=== PATIENT | female | born 1980 | race Caucasian/White ===

== ENCOUNTER 2016-12-24 20:01 | Emergency (ER) | payer SELFPAY ==
[~2016-12-24] VITALS: Ht 172.7 cm; Wt 57.3 kg
[2016-12-24 20:05] VITALS: BP 131/76; PULSE 71; RESP 22; O2SAT 98
[2016-12-24] MEDS ORDERED: MARI10CA PO (20:23)
[2016-12-24] MEDS ORDERED: DILA4TAB2 PO (20:23)
[2016-12-24] MEDS ORDERED: ASPI81CH7 CHEW (20:23)
[2016-12-24] MEDS ORDERED: METO25TA6 PO (20:23)
[2016-12-24] MEDS ORDERED: AMIO400T PO (20:23)
[2016-12-24] MEDS ORDERED: LEVE500 PO (20:23)
[2016-12-24] MEDS ORDERED: FURO1TAB62 PO (20:23)
[2016-12-24] MEDS ORDERED: MORPHINE SULFATE 4 MG/ML INJ IV PUSH ONE (20:45)
[2016-12-24] MEDS ORDERED: ONDANSETRON HCL 4 MG/2 ML VIAL IV PUSH ONE (21:15)
[2016-12-24 21:22] VITALS: BP 93/66; PULSE 61; RESP 17; TEMP 98; O2SAT 98
[2016-12-24 21:36] LABS: AUTOMATED NEUTROPHIL # 4.8 TH/MM3 (1.8-7.7); BASOPHIL # 0.1 TH/MM3 (0-0.2); BASOPHIL % 1.2 % (0.0-2.0); EOSINOPHIL # 0.1 TH/MM3 (0-0.4); EOSINOPHIL % 1.1 % (0.0-4.0); HEMO FLAGS DIFF FINAL; LYMPHOCYTE # 2.5 TH/MM3 (1.0-4.8); MEAN CELL VOLUME 97.6 FL (80.0-100.0); MEAN CORPUSCULAR HEMOGLOBIN 32.7 PG (27.0-34.0); MEAN CORPUSCULAR HGB CONC 33.5 % (32.0-36.0); MONO % 5.1 % (0.0-8.0); NEUT % 61.6 % (16.0-70.0); PLATELET COUNT 343 TH/MM3 (150-450); RED BLOOD COUNT 4.51 MIL/MM3 (4.00-5.30); RED CELL DISTRIBUTION WIDTH 14.3 % (11.6-17.2); WHITE BLOOD COUNT 7.9 TH/MM3 (4.0-11.0)
--- NOTE | 2016-12-24 21:54 | RADRPT ---
EXAM DATE/TIME: 12/24/2016 21:28 [facility] COMPARISON: No previous studies available for comparison. INDICATIONS : Vomiting and chest pain since this morning. MEDICAL HISTORY : None. SURGICAL HISTORY : None. ENCOUNTER: Initial ACUITY: 1 day PAIN SCORE: 110 LOCATION: Bilateral chest FINDINGS: A single view of the chest demonstrates the lungs to be symmetrically aerated without evidence of mas s, infiltrate or effusion. The cardiomediastinal contours are unremarkable. Osseous structures are intact. CONCLUSION: No acute cardiopulmonary process. Liam Camarillo MD on December 24, 2016 at 21:53 Board Certified Radiologist. This report was verified electronically.
[2016-12-24 22:04] LABS: CHLORIDE 109 MEQ/L (98-107); POTASSIUM 3.9 MEQ/L (3.5-5.1); SODIUM (NA) 142 MEQ/L (136-145)
[2016-12-24 22:05] VITALS: BP 114/80; PULSE 54; RESP 17; TEMP 97.9; O2SAT 100
[2016-12-24 22:08] LABS: ANION GAP 10 MEQ/L (5-15); BICARBONATE 23.3 MEQ/L (21.0-32.0); BLOOD UREA NITROGEN 10 MG/DL (7-18)
[2016-12-24 22:11] LABS: ALT (GPT) 29 U/L (10-53); AST (GOT) 23 U/L (15-37); GLOMERULAR FILTRATION RATE 66 ML/MIN (>89)
--- NOTE | 2016-12-24 22:12 | PD ---
HPI Chief Complaint: Alcohol/Drug Intoxication Time Seen by Provider: 20:18 Travel History International Travel<30 days: No Contact w/Intl Traveler<30days: No Traveled to known affect area: No History of Present Illness HPI Patient is a 36-year-old female brought in by EMS due to intoxication. Per EMS , she told them that she had 14 drinks. She says she had 4 drinks tonight. She says she is just not feeling well. She says she went outside of the bar because she felt very clinical staff rn needed some air. She does not remember what happened after that. She says she has stage IV cardiomyopathy. She complains of pain and swelling to both of her legs. She just drove down here from [place] in the past few days. She denies chest pain or shortness of breath. PFSH Past Medical History Cardiomyopathy: Yes (States "end stage cardiomyopathy") Cardiovascular Problems: Yes (HTN) COPD: Yes Seizures: Yes (takes Keppra) Tetanus Vaccination: Unknown Influenza Vaccination: No ?: Not Past Surgical History Cardiac Surgery: Yes (see above) Coronary Artery Bypass Graft: Yes ("30 heart operations") Hysterectomy: Yes Oral Surgery: Yes (wisdom teeth) Pacemaker: Yes (subcutaneous on left lower rib cage/back area) Social History Alcohol Use: Yes (States "Inever drink"; also states she had "4 drinks today") Tobacco Use: Yes (occassional per pt) Substance Use: Yes (marijuana daily) Allergies-Medications (Allergen,Severity, Reaction): Coded Allergies: acetaminophen (Verified Allergy, Severe, Swelling, 12/24/16) bee venom protein (honey bee) (Verified Allergy, Severe, 12/24/16) oxycodone (Verified Allergy, Severe, Swelling, 12/24/16) Reported Meds & Prescriptions Reported Meds & Active Scripts Active Reported Keppra (Levetiracetam) 500 Mg Tab 400 Mg PO BID Lasix (Furosemide) 20 Mg Tab Unknown Dose PO BID Aspirin Children's (Aspirin) 81 Mg Chew 324 Mg CHEW DAILY Dilaudid (Hydromorphone HCl) 4 Mg Tab 4 Mg PO Q4H PRN Metoprolol Succinate ER 24 HR (Metoprolol Succinate) 25 Mg Tab 25 Mg PO DAILY Marinol (Dronabinol) 10 Mg Cap 10 Mg PO BID Amiodarone (Amiodarone HCl) 400 Mg Tab 400 Mg PO BID Review of Systems Except as stated in HPI: all other systems reviewed are Neg General / Constitutional: No: Fever, Chills Eyes: No: Blurred Vision HENT: No: Headaches, Lightheadedness Cardiovascular: No: Chest Pain or Discomfort Respiratory: No: Shortness of Breath Gastrointestinal: Positive: Nausea, Vomiting Musculoskeletal: Positive: Edema, Pain Skin: No Rash, No Change in Pigmentation Neurologic: No: Weakness, Dizziness Physical Exam Narrative GENERAL: Awake and alert, in no acute distress. Clearly intoxicated, alcohol breath. SKIN: Focused skin assessment warm/dry. No wounds or signs of trauma. HEAD: Atraumatic. Normocephalic. EYES: Pupils equal and round. No scleral icterus. Extraocular movements intact. ENT: Mucous membranes pink and moist. NECK: Trachea midline. No JVD. CARDIOVASCULAR: Regular rate and rhythm. No murmur appreciated. RESPIRATORY: No accessory muscle use. Clear to auscultation. Breath sounds equal bilaterally. GASTROINTESTINAL: Abdomen soft, non-tender, nondistended. MUSCULOSKELETAL: No obvious deformities. No clubbing. No cyanosis. Mild edema to both lower extremities. Tenderness to palpation of the left calf. NEUROLOGICAL: Awake and alert. No obvious cranial nerve deficits. Motor grossly within normal limits. Normal speech. PSYCHIATRIC: Appropriate mood and affect; insight and judgment normal. Data Data Last Documented VS Vital Signs Date Time Temp Pulse Resp B/P (MAP) Pulse Ox O2 Delivery O2 Flow Rate FiO2 12/24/16 22:44 54 17 100/62 (75) 99 Room Air 12/24/16 22:05 97.9 Orders Orders Complete Blood Count With Diff (12/24/16 20:34) Comprehensive Metabolic Panel (12/24/16 20:34) Electrocardiogram (12/24/16 ) Iv Access Insert/Monitor (12/24/16 20:34) Alcohol (Ethanol) (12/24/16 20:34) Chest, Single Ap (12/24/16 ) Ed Urine Pregnancytest Poc (12/24/16 20:34) Us Leg Venous Doppler Bilat (12/24/16 ) Morphine Inj (Morphine Inj) (12/24/16 20:45) Ondansetron Inj (Zofran Inj) (12/24/16 21:15) Labs Laboratory Tests Test 12/24/16 21:13 12/24/16 21:50 White Blood Count 7.9 TH/MM3 Red Blood Count 4.51 MIL/MM3 Hemoglobin 14.8 GM/DL Hematocrit 44.0 % Mean Corpuscular Volume 97.6 FL Mean Corpuscular Hemoglobin 32.7 PG Mean Corpuscular Hemoglobin Concent 33.5 % Red Cell Distribution Width 14.3 % Platelet Count 343 TH/MM3 Mean Platelet Volume 7.4 FL Neutrophils (%) (Auto) 61.6 % Lymphocytes (%) (Auto) 31.0 % Monocytes (%) (Auto) 5.1 % Eosinophils (%) (Auto) 1.1 % Basophils (%) (Auto) 1.2 % Neutrophils # (Auto) 4.8 TH/MM3 Lymphocytes # (Auto) 2.5 TH/MM3 Monocytes # (Auto) 0.4 TH/MM3 Eosinophils # (Auto) 0.1 TH/MM3 Basophils # (Auto) 0.1 TH/MM3 CBC Comment DIFF FINAL Differential Comment Blood Urea Nitrogen 10 MG/DL Creatinine 0.95 MG/DL Random Glucose 85 MG/DL Total Protein 7.1 GM/DL Albumin 3.6 GM/DL Calcium Level 8.2 MG/DL Alkaline Phosphatase 56 U/L Aspartate Amino Transf (AST/SGOT) 23 U/L Alanine Aminotransferase (ALT/SGPT) 29 U/L Total Bilirubin 0.2 MG/DL Sodium Level 142 MEQ/L Potassium Level 3.9 MEQ/L Chloride Level 109 MEQ/L Carbon Dioxide Level 23.3 MEQ/L Anion Gap 10 MEQ/L Estimat Glomerular Filtration Rate 66 ML/MIN Ethyl Alcohol Level 238 MG/DL [facility] Medical Decision Making Medical Screen Exam Complete: Yes Emergency Medical Condition: Yes Interpretation(s) ECG shows sinus bradycardia at 56, no ST elevation or depression, prolonged QT. Differential Diagnosis Intoxication versus electrolyte abnormality versus DVT versus syncope Narrative Course Patient is a 36-year-old female, obviously intoxicated, who comes in complaining of leg pain and swelling. She was found sleeping outside a bar. Exam shows mild edema of both lower extremities and tenderness to palpation of the left calf. IV established, labs sent. Patient given Zofran as well as pain medicine. No fluids given due to reported history of stage IV cardiomyopathy. Chest x-ray performed shows no evidence of cardiomegaly or pulmonary edema. Ultrasound shows no evidence of DVT. Last 24 hours Impressions Lower Extremity Ultrasound 12/24/16 0000 Signed Impressions: Service Date/Time: December 21:38 - CONCLUSION: Negative exam. No sonographic or Doppler findings of deep venous thrombosis. Liam Camarillo MD Chest X-Ray 12/24/16 0000 Signed Impressions: Service Date/Time: December 21:28 - CONCLUSION: No acute cardiopulmonary process. Liam Camarillo MD Patient was medically cleared. She eloped from the ED. She did have a sober friend with her. Her IV was found in the trashcan. Diagnosis Primary Impression: Alcohol intoxication Qualified Codes: F10.920 - Alcohol use, unspecified with intoxication, uncomplicated Disposition: DISCHARGE HOME Condition: Stable Kelsi Lin MD Dec 24, 2016 22:12
[2016-12-24 22:13] LABS: TOTAL BILIRUBIN ADULT 0.2 MG/DL (0.2-1.0)
[2016-12-24 22:14] LABS: ALCOHOL 238 MG/DL (0-5); ALKALINE PHOSPHATASE 56 U/L (45-117)
--- NOTE | 2016-12-24 22:24 | RADRPT ---
EXAM DATE/TIME: 12/24/2016 21:38 [facility] COMPARISON: No previous studies available for comparison. INDICATIONS : Bilateral leg swelling. MEDICAL HISTORY : Hypertension. Seizures. Chronic obstructive pulmonary disease. ETOH abuse. Substance abuse. SURGICAL HISTORY : Hysterectomy.Pacemaker. Cardiac surgery. ENCOUNTER: Initial ACUITY: 1 week PAIN SCORE: 2/10 LOCATION: Bilateral legs. TECHNIQUE: Venous ultrasound of the left and right leg was performed from the inguinal ligament to the proximal calf. Real-time, color Doppler and spectral tracing, compression and augmentation techniques were us ed. FINDINGS: RIGHT LEG: There is normal compressibility of the deep venous system from the inguinal region to the proximal ca lf. No echogenic clot is seen in the lumen of the common femoral, femoral, popliteal, and posterior tibial veins. There is a normal response of the venous system to proximal and distal augmentation an d respiration. LEFT LEG: There is normal compressibility of the deep venous system from the inguinal region to the proximal ca lf. No echogenic clot is seen in the lumen of the common femoral, femoral, popliteal, and posterior tibial veins. There is a normal response of the venous system to proximal and distal augmentation an d respiration. CONCLUSION: Negative exam. No sonographic or Doppler findings of deep venous thrombosis. Liam Camarillo MD on December 24, 2016 at 22:22 Board Certified Radiologist. This report was verified electronically.
[2016-12-24 22:44] VITALS: BP 100/62; PULSE 54; RESP 17; O2SAT 99
--- NOTE | 2016-12-25 11:39 | EKG ---
Date Performed: 12/24/2016 Time Performed: 21:04:45 PTAGE: 36 years EKG: SINUS BRADYCARDIA POSSIBLE PROLONGED QT INTERVAL ABNORMAL ECG NO PREVIOUS TRACING DOCTOR: David Santa Interpretating Date/Time 12/25/2016 11:37:42
== END 2016-12-24 23:38 | disposition left against medical advice (07) ==
LOC: PHED 20:01
DX: F10.920 Alcohol use, unspecified with intoxication, uncomplicated (principal); R00.1 Bradycardia, unspecified; I42.9 Cardiomyopathy, unspecified; I10 Essential (primary) hypertension; J44.9 Chronic obstructive pulmonary disease, unspecified; M79.662 Pain in left lower leg; Z72.0 Tobacco use
CPT/HCPCS: 71010; 80053; 80307; 84703; 85025; 93005; 93970; 96374; 96375; 99285; J2270; J2405

== ENCOUNTER 2017-04-10 10:41 | Emergency (ER) | payer OTHER ==
[~2017-04-10] VITALS: Ht 172.7 cm; Wt 52.0 kg
[~2017-04-10 10:41] MED LIST: AMIO400T PO; ASPI81CH7 CHEW; DILA4TAB10 PO; FURO1TAB62 PO; LEVE500 PO; MARI10CA PO; METO1TAB42 PO
[2017-04-10 10:43] VITALS: BP 118/87; PULSE 83; RESP 14; TEMP 98.5; O2SAT 96
[2017-04-10] MEDS ORDERED: RESP: ALBUTEROL 2.5 MG/IPRATROPIUM 0.5 MG NEB (SCH) NEB ONE (11:30)
--- NOTE | 2017-04-10 11:34 | PD ---
HPI Chief Complaint: Cold / Flu Symptoms Time Seen by Provider: 11:21 Travel History International Travel<30 days: No Contact w/Intl Traveler<30days: No Traveled to known affect area: No History of Present Illness HPI 36 year female presents to the emergency department complaining of painful nonproductive cough, clear rhinorrhea, and acute on chronic chest discomfort for 3 weeks. Patient states that she has developed back pain as well because of the coughing. States her chest pain is worse in the morning and with coughing, nonradiating. Patient denies shortness of breath however, states it is painful to breathe. Patient denies fever or chills. Denies nausea, vomiting , or diarrhea. Denies urinary problems. Denies chronic medical issues or chronic medication use. Patient denies recent travel, surgeries, immobilizations, or fractures. Also denies any chronic blood disorders or trauma. PFSH Past Medical History Cardiomyopathy: Yes (States "end stage cardiomyopathy") Cardiovascular Problems: Yes COPD: Yes Seizures: Yes (takes Keppra) ?: Not Past Surgical History Cardiac Surgery: Yes (see above) Coronary Artery Bypass Graft: Yes ("30 heart operations") Hysterectomy: Yes Oral Surgery: Yes (wisdom teeth) Pacemaker: Yes (subcutaneous on left lower rib cage/back area) Social History Alcohol Use: Yes (States "Inever drink"; also states she had "4 drinks today") Tobacco Use: Yes (occassional per pt) Substance Use: Yes (marijuana daily) Allergies-Medications (Allergen,Severity, Reaction): Coded Allergies: acetaminophen (Verified Allergy, Severe, Swelling, 04/10/17) bee venom protein (honey bee) (Verified Allergy, Severe, 04/10/17) oxycodone (Verified Allergy, Severe, Swelling, 04/10/17) Reported Meds & Prescriptions Reported Meds & Active Scripts Active Augmentin (Amoxicillin-Clavulanate) 875-125 Mg Tab 1 Tab PO BID 7 Days Ventolin Hfa 18 GM Inh (Albuterol Sulfate) 90 Mcg/Act Aer 1 Puff INH Q4H PRN Reported Keppra (Levetiracetam) 500 Mg Tab 400 Mg PO BID Lasix (Furosemide) 20 Mg Tab Unknown Dose PO BID Aspirin Children's (Aspirin) 81 Mg Chew 324 Mg CHEW DAILY Dilaudid (Hydromorphone HCl) 4 Mg Tab 4 Mg PO Q4H PRN Metoprolol Succinate ER 24 HR (Metoprolol Succinate) 25 Mg Tab 25 Mg PO DAILY Marinol (Dronabinol) 10 Mg Cap 10 Mg PO BID Amiodarone (Amiodarone HCl) 400 Mg Tab 400 Mg PO BID Review of Systems Except as stated in HPI: all other systems reviewed are Neg Physical Exam Narrative GENERAL: Well-developed well-nourished in mild distress SKIN: Focused skin assessment warm/dry. HEAD: Atraumatic. Normocephalic. EYES: Pupils equal and round. No scleral icterus. No injection or drainage. ENT: No nasal bleeding or discharge. Mucous membranes pink and moist. NECK: Trachea midline. No JVD. No lymphadenopathy. THROAT: No pharyngeal injection, exudates, or tonsillar hypertrophy. Airway is patent. Post nasal drip with clear rhinorrhea CARDIOVASCULAR: Regular rate and rhythm. No murmur appreciated. RESPIRATORY: No accessory muscle use. Clear to auscultation. Breath sounds equal bilaterally. Chest discomfort partially reproduced upon palpation GASTROINTESTINAL: Abdomen soft, non-tender, nondistended. Hepatic and splenic margins not palpable. MUSCULOSKELETAL: No obvious deformities. No clubbing. No cyanosis. No edema. No CVA Tenderness. NEUROLOGICAL: Awake and alert. No obvious cranial nerve deficits. Motor grossly within normal limits. Normal speech. PSYCHIATRIC: Appropriate mood and affect; insight and judgment normal. Data Data Last Documented VS Vital Signs Date Time Temp Pulse Resp B/P (MAP) Pulse Ox O2 Delivery O2 Flow Rate FiO2 04/10/17 16:45 04/10/17 16:00 80 16 100 Room Air 04/10/17 10:43 98.5 Orders Orders Albuterol-Ipratropium Neb (Duoneb Neb) (04/10/17 11:30) Electrocardiogram (04/10/17 ) Chest, Single Ap (04/10/17 ) Complete Blood Count With Diff (04/10/17 11:59) D-Dimer (04/10/17 11:59) Influenzae A/B Antigen (04/10/17 11:59) Sodium Chlor 0.9% 1000 Ml Inj (Ns 1000 M (04/10/17 12:00) Morphine Inj (Morphine Inj) (04/10/17 12:45) Ed Discharge Order (04/10/17 16:46) Labs Laboratory Tests Test 04/10/17 12:15 White Blood Count 8.8 TH/MM3 Red Blood Count 4.50 MIL/MM3 Hemoglobin 15.5 GM/DL Hematocrit 45.6 % Mean Corpuscular Volume 101.2 FL Mean Corpuscular Hemoglobin 34.4 PG Mean Corpuscular Hemoglobin Concent 34.0 % Red Cell Distribution Width 14.2 % Platelet Count 317 TH/MM3 Mean Platelet Volume 7.0 FL Neutrophils (%) (Auto) 78.6 % Lymphocytes (%) (Auto) 16.0 % Monocytes (%) (Auto) 4.3 % Eosinophils (%) (Auto) 0.6 % Basophils (%) (Auto) 0.5 % Neutrophils # (Auto) 6.9 TH/MM3 Lymphocytes # (Auto) 1.4 TH/MM3 Monocytes # (Auto) 0.4 TH/MM3 Eosinophils # (Auto) 0.1 TH/MM3 Basophils # (Auto) 0.0 TH/MM3 CBC Comment DIFF FINAL Differential Comment D-Dimer Quantitative (PE/DVT) 0.30 MG/L [facility] Medical Decision Making Medical Screen Exam Complete: Yes Emergency Medical Condition: Yes Differential Diagnosis Upper respiratory infection, influenza, asthma, COPD, bronchitis Narrative Course 36 year female presents to the emergency department complaining of painful nonproductive cough, clear rhinorrhea, and acute on chronic chest discomfort for 3 weeks. Patient states that she has developed back pain as well because of the coughing. States her chest pain is worse in the morning and with coughing, nonradiating. Patient denies shortness of breath however, states it is painful to breathe. Patient denies fever or chills. Denies nausea, vomiting , or diarrhea. Denies urinary problems. Denies chronic medical issues or chronic medication use. Patient denies recent travel, surgeries, immobilizations, or fractures. Also denies any chronic blood disorders or trauma. Vital signs stable. Physical exam findings essentially unremarkable. Last Impressions Chest X-Ray 04/10/17 0000 Signed Impressions: Service Date/Time: Monday, April 10, 2017 11:36 - CONCLUSION: No acute disease. Lennox Yates MD FACR EKG- sinus bradycardia without ST elevations or depressions. After further discussion patient admits to a history of ARVD cardiomyopathy, chronic chest pain, seizure disorder. She initially denied any chronic medical issues. Patient is on amiodarone, baby aspirin, metoprolol, Dilaudid, and Marinol daily. She has a history of cervical and ovarian cancer status post hysterectomy 2016. She says that the DuoNeb has helped decrease some of her discomfort. Patient's symptoms seem to be exacerbated by her friend in the room. Multiple reassessments noted with improvement in condition. Patient was in the emergency department extended time secondary to multiple blood draws were resulting in hemolysis. Chemistries and pending labs were cancelled as she admits that this is her baseline chest discomfort exacerbated by coughing. There is no evidence of any emergent condition at this time patient will be discharged with bronchitis. Albuterol and Augmentin prescribed because of duration of symptoms and apparent improvement of symptoms. Advised follow-up with primary care physician within 2-3 days. Patient walked out comfortably without issue. Return to the emergency for worsening or persistent symptoms. Diagnosis Primary Impression: Acute bronchitis Qualified Codes: J20.9 - Acute bronchitis, unspecified Referrals: [facility] Departure Forms: Tests/Procedures, Work Release Enter return to work date: Apr 13, 2017 Scripts Amoxicillin-Clavulanate (Augmentin) 875-125 Mg Tab 1 TAB PO BID for Infection for 7 Days, #14 TAB 0 Refills Prov: Garrett Davis MD 04/10/17 Albuterol 18 GM Inh (Ventolin Hfa 18 GM Inh) 90 Mcg/Act Aer 1 PUFF INH Q4H Y for SHORTNESS OF BREATH, #1 INHALER 0 Refills Prov: Garrett Davis MD 04/10/17 Disposition: 01 DISCHARGE HOME Condition: Stable Erin Joyner Apr 10, 2017 11:34
--- NOTE | 2017-04-10 11:51 | RADRPT ---
EXAM DATE/TIME: 04/10/2017 11:36 [facility] COMPARISON: CHEST SINGLE AP, December 24, 2016, 21:28. INDICATIONS : Patient complains of cough, congestion, shortness of breath, and chest pain. MEDICAL HISTORY : None. SURGICAL HISTORY : D-fib. ENCOUNTER: Initial ACUITY: 3 weeks PAIN SCORE: 8/10 FINDINGS: A single view of the chest demonstrates the lungs to be symmetrically aerated without evidence of mas s, infiltrate or effusion. The cardiomediastinal contours are unremarkable. Osseous structures are intact. The fibular bleed midline CONCLUSION: No acute disease. Lennox Yates MD FACR on April 10, 2017 at 11:48 Board Certified Radiologist. This report was verified electronically.
[2017-04-10 12:00] VITALS: PULSE 76; RESP 18; O2SAT 99
[2017-04-10] MEDS ORDERED: SODIUM CHLOR 0.9% 1000 ML INJ 1,000 ML IV ONE (12:00)
[2017-04-10] MEDS ORDERED: MORPHINE SULFATE 2 MG/ML INJ IV PUSH ONE (12:45)
[2017-04-10 12:50] LABS: AUTOMATED NEUTROPHIL # 6.9 TH/MM3 (1.8-7.7); BASOPHIL % 0.5 % (0.0-2.0); EOSINOPHIL # 0.1 TH/MM3 (0-0.4); EOSINOPHIL % 0.6 % (0.0-4.0); HEMATOCRIT 45.6 % (35.0-46.0); HEMOGLOBIN 15.5 GM/DL (11.6-15.3); LYMPHOCYTE # 1.4 TH/MM3 (1.0-4.8); MEAN CELL VOLUME 101.2 FL (80.0-100.0); MEAN CORPUSCULAR HEMOGLOBIN 34.4 PG (27.0-34.0); MONO % 4.3 % (0.0-8.0); MONOCYTE # 0.4 TH/MM3 (0-0.9); NEUT % 78.6 % (16.0-70.0); PLATELET COUNT 317 TH/MM3 (150-450); RED CELL DISTRIBUTION WIDTH 14.2 % (11.6-17.2); WHITE BLOOD COUNT 8.8 TH/MM3 (4.0-11.0)
[2017-04-10 16:00] VITALS: PULSE 80; RESP 16; O2SAT 100
[2017-04-10] MEDS ORDERED: VENTAER INH (16:00)
[2017-04-10] MEDS ORDERED: AUGM875T3 PO (16:00)
--- NOTE | 2017-04-10 16:46 | EKG ---
Date Performed: 04/10/2017 Time Performed: 11:52:35 PTAGE: 36 years EKG: SINUS BRADYCARDIA WITH OCCASIONAL VENTRICULAR PREMATURE COMPLEXES MODERATE T-WAVE ABNORMALI TY PREVIOUS TRACING : 12/24/2016 21.04 Compared to prior tracing no significant change DOCTOR: Ángel Anderson Interpretating Date/Time 04/10/2017 16:46:27
== END 2017-04-10 16:52 | disposition home or self-care (01) ==
LOC: NEPD 10:41
DX: J20.9 Acute bronchitis, unspecified (principal); I42.9 Cardiomyopathy, unspecified; G40.909 Epilepsy, unspecified, not intractable, without status epilepticus; R00.1 Bradycardia, unspecified; R94.31 Abnormal electrocardiogram [ECG] [EKG]; J44.9 Chronic obstructive pulmonary disease, unspecified; R56.9 Unspecified convulsions; Z72.0 Tobacco use; Z79.82 Long term (current) use of aspirin
CPT/HCPCS: 71010; 85025; 85379; 87804; 93005; 94664; 96374; 99285; J2270; J7030